=== PATIENT | female | born 1960 | race Caucasian/White ===

== ENCOUNTER 2019-02-11 08:11 | Day surgery (SDC) | payer OTHER ==
[2019-02-11] VITALS (9 sets, daily range): BP systolic 101–139; BP diastolic 60–77; PULSE 70–98; RESP 12–18; Ht 157.5 cm; Wt 88.7 kg
[~2019-02-11] VITALS: Ht 157.5 cm; Wt 88.7 kg
[2019-02-11] MEDS ORDERED: SOD CHLORIDE 0.9% 1,000 ML IV SCH (09:00)
[2019-02-11] MEDS ORDERED: ASPI-1044 PO (09:06)
[2019-02-11] MEDS ORDERED: LISI40TA3 PO (09:07)
[2019-02-11] MEDS ORDERED: ROSU20TA30 PO (09:07)
[2019-02-11] MEDS ORDERED: LIDOCAINE 1% (MPF) 5 ML VIAL ONE ×2 (09:49→10:41)
[2019-02-11] MEDS ORDERED: FENTAnyl 50 MCG/ML VIAL ONE (10:19)
[2019-02-11] MEDS ORDERED: MIDAZOLAM 1 MG/ML 2 ML INJ ONE (10:19)
--- NOTE | 2019-02-11 11:06 | HPN ---
Date/Time of Note Date/Time of Note DATE: 02/11/19 TIME: 11:05 Interval H&P Admission Note Pt. seen H&P reviewed: No system changes AMEE MENSAH MD Feb 11, 2019 11:06
== END 2019-02-11 13:21 | disposition home or self-care (01) ==
LOC: SDS 08:11
PROVIDERS: ATTEND Internal Medicine
DX: D47.9 Neoplasm of uncertain behavior of lymphoid, hematopoietic and related tissue, unspecified (principal); Z85.72 Personal history of non-Hodgkin lymphomas; I10 Essential (primary) hypertension; E78.5 Hyperlipidemia, unspecified
CPT/HCPCS: 38221; 77012; 88305; 88311; 88313; J2250; J3010; Z7610; 88341; 88342